=== PATIENT | female | born 1945 | race Caucasian/White ===

== ENCOUNTER → 2016-07-30 | Outpatient (CLI) | payer OTHER ==
[~2016-07-30] MED LIST: ASCO250T14 PO; ATOR-22 PO; AZEL0.15; AZEL15GE TOP; CDXG40WC; FEXO1TAB46 PO; HYDR-5688 PO; LEVO50TA6 PO; METF500T PO; METO25TA3 PO; MOME50SP5; PANT40TA PO; PRO BIOTIC; PROP80TA2 PO; SULF800T23 PO; VITAMIN D PO
[2016-07-30 12:52] LABS: ALT/SGPT 25 U/L (12-78); BLOOD UREA NITROGEN 16 mg/dl (7-18); BUN/CREATININE RATIO 21.1 (10-20); CARBON DIOXIDE 22 mmol/L (21-32); CHLORIDE 110 mmol/L (98-107); CREATININE 0.75 mg/dl (0.60-1.20); GLUCOSE 102 mg/dl (70-99); POTASSIUM 3.8 mmol/L (3.5-5.1); SODIUM 144 mmol/L (136-145)
[2016-07-30 13:02] LABS: ALKALINE PHOSPHATASE 77 U/L (45-117); AST/SGOT 13 U/L (15-37)
[2016-07-30 13:24] LABS: ESTIMATED AVERAGE GLUCOSE 100 mg/dl; HA1C FLAG Normal (Normal)
== END | disposition home or self-care (01) ==
LOC: C.LABBFT 07:56
PROVIDERS: ATTEND Internal Medicine
DX: K21.9 Gastro-esophageal reflux disease without esophagitis (principal); E55.9 Vitamin D deficiency, unspecified; E03.2 Hypothyroidism due to medicaments and other exogenous substances; E78.5 Hyperlipidemia, unspecified; R73.09 Other abnormal glucose

== ENCOUNTER → 2016-09-21 | Outpatient (CLI) | payer OTHER ==
[~2016-09-21] MED LIST changes: -HYDR-5688 PO
--- NOTE | 2016-09-22 10:57 | MAMMOGRAPHY REPORT ---
BILATERAL DIGITAL SCREENING MAMMOGRAM WITH CAD: 09/21/2016 CLINICAL HISTORY: Routine screening. Patient has no complaints. TECHNIQUE: Bilateral CC and MLO views were obtained, with repeat MLO views with more anterior compre ssion. Current study was also evaluated with a Computer Aided Detection (CAD) system. COMPARISON: Comparison is made to exams dated: 09/20/2015 mammogram, 09/13/2013 mammogram, 09/12/2012 ma mmogram, 09/11/2011 mammogram, 09/09/2010 mammogram, and 09/25/2009 mammogram - [facility] ter. BREAST COMPOSITION: The tissue of both breasts is heterogeneously dense, which may obscure small ma sses. FINDINGS: There are stable clustered microcalcifications in the 6:00 right breast. A few other scat tered benign round calcifications bilaterally. There is bilateral axillary lymphadenopathy noted on the MLO views. No new suspicious breast mass, architectural distortion or cluster of microcalcific ations is seen. IMPRESSION: ACR BI-RADS CATEGORY 1: NEGATIVE 1. Stable bilateral mammograms, without mammographic evidence of malignancy. A 1 year screening randall mogram is recommended. 2. Bilateral axillary lymphadenopathy, present on prior mammograms dating back to 2009 and concorda nt with the clinical history of CLL. The patient will receive written notification of the results. Approximately 10% of breast cancers are not detected with mammography. A negative mammographic repor t should not delay biopsy if a clinically suggestive mass is present. Ashly Urban M.D. ay/:09/21/2016 17:07:14 Golf Club Repairer: Canelo LUGO(R)(M), [facility] letter sent: Normal 1/2 BI-RADS Code: ACR BI-RADS Category 1: Negative
== END | disposition home or self-care (01) ==
LOC: C.MAMM 09:59
PROVIDERS: ATTEND Internal Medicine Hematology & Oncology
DX: Z12.31 Encounter for screening mammogram for malignant neoplasm of breast (principal); N64.89 Other specified disorders of breast

== ENCOUNTER → 2016-11-11 | Outpatient (CLI) | payer OTHER ==
[2016-11-11 12:20] LABS: HEMATOCRIT 38.4 % (37-47); MEAN CELL VOLUME 86.5 fL (80-100); MEAN CORPUSCULAR HEMOGLOBIN 26.1 pg (25-34); MEAN CORPUSCULAR HGB CONC 30.2 g/dl (32-36); MEAN PLATELET VOLUME 9.1 fL (7.4-10.4); PLATELET COUNT 147 K/uL (130-400); RED BLOOD COUNT 4.44 M/uL (4.2-5.4)
[2016-11-11 13:14] LABS: ALT/SGPT 26 U/L (12-78); AST/SGOT 12 U/L (15-37); BLOOD UREA NITROGEN 15 mg/dl (7-18); BUN/CREATININE RATIO 19.9 (10-20); CALCIUM 8.8 mg/dl (8.5-10.1); CARBON DIOXIDE 26 mmol/L (21-32); CHLORIDE 109 mmol/L (98-107); CREATININE 0.76 mg/dl (0.60-1.20); GLUCOSE 96 mg/dl (70-99); POTASSIUM 4.1 mmol/L (3.5-5.1); SODIUM 145 mmol/L (136-145)
[2016-11-11 13:16] LABS: ALKALINE PHOSPHATASE 81 U/L (45-117)
[2016-11-11 13:58] LABS: BASO % 0.2 %; BASO ABS # 0.04 K/uL (0-0.2); COMPLETE YES; EOS % 1.7 %; IG% 0.2 %; LYMPH ABS # 12.83 K/uL (1.2-3.4); MONO % 3.2 %; NEUT % 25.7 %; SMUDGE CELLS PRESENT
== END | disposition home or self-care (01) ==
LOC: C.LABBFT 10:12
PROVIDERS: ATTEND Internal Medicine Hematology & Oncology
DX: C91.10 Chronic lymphocytic leukemia of B-cell type not having achieved remission (principal)

== ENCOUNTER → 2017-01-28 | Outpatient (CLI) | payer OTHER ==
[2017-01-28 12:26] LABS: ALT/SGPT 28 U/L (12-78); BLOOD UREA NITROGEN 18 mg/dl (7-18); BUN/CREATININE RATIO 20.5 (10-20); CARBON DIOXIDE 25 mmol/L (21-32); CHLORIDE 109 mmol/L (98-107); CHOLESTEROL 128 mg/dl (0-200); CREATININE 0.86 mg/dl (0.60-1.20); GLUCOSE 113 mg/dl (70-99); POTASSIUM 3.8 mmol/L (3.5-5.1); SODIUM 141 mmol/L (136-145); TRIGLYCERIDES 138 mg/dl (0-150); VERY LOW DENSITY LIPOPROT CALC 28 mg/dl
[2017-01-28 12:32] LABS: ESTIMATED AVERAGE GLUCOSE 103 mg/dl; HA1C FLAG Normal (Normal)
[2017-01-28 12:36] LABS: ALB/GLOB RATIO 1.1 (0.9-2); ALKALINE PHOSPHATASE 77 U/L (45-117); AST/SGOT 16 U/L (15-37); CHOLESTEROL/HDL RATIO 2.8; HDL CHOLESTEROL 45 mg/dl; LDL CHOLESTEROL CALCULATED 55 mg/dl
== END | disposition home or self-care (01) ==
LOC: C.LABBFT 10:16
PROVIDERS: ATTEND Internal Medicine
DX: Z00.00 Encounter for general adult medical examination without abnormal findings (principal); C91.10 Chronic lymphocytic leukemia of B-cell type not having achieved remission; E03.2 Hypothyroidism due to medicaments and other exogenous substances; I47.1 Supraventricular tachycardia; E78.5 Hyperlipidemia, unspecified; R73.01 Impaired fasting glucose

== ENCOUNTER → 2017-05-26 | Outpatient (CLI) | payer OTHER ==
--- NOTE | 2017-05-26 10:58 | DIAGNOSTIC IMAGING REPORT ---
PET/CT CLINICAL HISTORY: Chronic lymphocytic leukemia. Breast cancer. TECHNIQUE: A PET/CT was performed from the skull base through the upper thighs following intravenous injection of 13.63 mCi of F 18 FDG IV. The injection was performed at 8:14 AM on May 26, 2017 and imaging began at 9:18 AM on May 26, 2017. Unenhanced CT was performed for attenuation correction purposes and anatomic localization. COMPARISON STUDY: CT of the chest abdomen and pelvis February 29, [address] of the neck March 19, 2016. FINDINGS: Head and neck: Numerous mildly enlarged bilateral cervical lymph nodes are noted. These nodes have slightly decreased in size since exam March 19, 2016. Index left level 2 node shown image 22 measures 1.2 x 0.9 cm. It previously measured 1.5 x 1.1 cm. Index right level 1 node shown on image 29 measures 1.2 x 0.7 cm. It previously measured 1.5 x 0.7 cm. These nodes have minimal FDG uptake which is similar to background soft tissues. Chest: Moderately enlarged bilateral axillary lymph nodes have not significantly changed since CT of March 08, 2012. An index left axillary node shown image 62 measures 3.5 cm. An additional left axillary node shown on image 67 measures 2.1 x 2 cm. It previously measured 2.2 x 1.7 cm. These nodes have minimal FDG uptake with an SUV max of 1.2. A 1.9 x 1.3 cm right axillary lymph node shown on image 95 has not significant changed in size. Abdomen and Pelvis: Mild splenomegaly is unchanged since CT of March 08, 2012. A water attenuation right renal lesion likely reflects a cyst is suboptimally assessed on this unenhanced exam. A mildly enlarged portacaval lymph node shown image 123 is unchanged since prior CT. This measures 2 x 1.1 cm. This has no significant FDG uptake. Mildly enlarged bilateral external iliac lymph nodes have slightly decreased in size since CT of February 29, 2012. Left external iliac node shown image 199 measures 1.9 x 1.4 cm. It previously measured 2.2 x 1.4 cm. This node has no significant FDG uptake. An index right external iliac node shown image 192 measures 1.8 x 1.2 cm. It previously measured 2 x 1.3 cm. Musculoskeletal: No suspicious skeletal uptake is identified. IMPRESSION: Overall, minimal change. Slight improvement in lymphadenopathy within the neck, chest, abdomen and pelvis since CT of March 08, 2012. A few lymph nodes have slightly decreased in size while the majority of lymph nodes are unchanged. No significant andrzej FDG uptake. Stable mild splenomegaly. Electronically signed by: Joaquin Ross M.D. 05/26/2017 10:57 AM Dictated Date/Time: 05/26/2017 10:41 AM
== END | disposition home or self-care (01) ==
LOC: C.PET 07:54
PROVIDERS: ATTEND Internal Medicine Hematology & Oncology
DX: C91.10 Chronic lymphocytic leukemia of B-cell type not having achieved remission (principal); C50.411 Malignant neoplasm of upper-outer quadrant of right female breast

== ENCOUNTER → 2017-05-31 | Outpatient (CLI) | payer OTHER ==
--- NOTE | 2017-05-31 14:47 | MAMMOGRAPHY REPORT ---
BILATERAL DIGITAL DIAGNOSTIC MAMMOGRAM TOMOSYNTHESIS WITH CAD AND TARGETED RIGHT ULTRASOUND: 05/31/20 17 CLINICAL HISTORY: 72-year-old woman with a personal history of CLL presents with a palpable lump in t he right breast that she has noticed for a little over one month. No skin erythema, thickening or ni pple discharge. TECHNIQUE: Bilateral breast tomosynthesis in addition to standard 2D mammography was performed. Curr ent study was also evaluated with a Computer Aided Detection (CAD) system. COMPARISON: Comparison is made to exams dated: 09/21/2016 mammogram, 09/20/2015 mammogram, 09/19/2014 m ammogram, 09/13/2013 mammogram, 09/12/2012 mammogram, and 09/11/2011 mammogram - [facility]. BREAST COMPOSITION: The tissue of both breasts is heterogeneously dense, which may obscure small mas ses. FINDINGS: Numerous enlarged bilateral axillary lymph nodes project over the pectoralis muscles on th e MLO views, which appears similar to prior mammograms dating back to at least 2011 and are consisten t with the clinical history of CLL. There is an 8.5 mm cluster of round and punctate microcalcificat ions in the 6:00 posterior right breast, that appears similar dating back to at least 09/05/2009, the refore likely benign. A few other benign rim calcifications are scattered in both breasts. No new s uspicious cluster of microcalcifications, focal area of distortion or developing asymmetry is identif ied bilaterally. No obvious mass is seen in the breasts, with particular attention to the triangle p alpable marker which overlies the 12:00 middle to anterior right breast. Targeted ultrasound was performed in the area of palpable lump pointed out by the patient, within the approximate 12:00 right breast, 3 through 8 cm from the nipple. In the 12:00 axis, 7 cm from the ni pple, there are numerous scattered anechoic cysts and duct ectasia. However, there is a possible sup erimposed isoechoic solid mass measuring 7.8 x 6.5 x 6.5 mm. Another probable superimposed isoechoic solid mass in the 12:00 right breast, 5 cm from the nipple measures 5.8 x 4.6 x 7.2 mm. A third pos sible similar appearing isoechoic mass in the 12:00 right breast, 4 cm from the nipple measures 8.3 x 5.9 x 7.6 mm. Although these findings could represent focal fibrocystic changes, adenosis or benign masses such as papillomas/fibroadenomas, definitive characterization with tissue sampling of the lar gest mass in the 12:00 axis, 4 cm from the nipple is recommended. Pending benign pathology results, could follow the other similar appearing areas in the 12:00 right breast with targeted ultrasound in 6 months. It is difficult to tell if one of these masses correlates as palpated, given that the palp able area appears larger than all of the masses conglomerate. IMPRESSION: ACR BI-RADS CATEGORY 4: SUSPICIOUS, TARGETED ULTRASOUND ACR BI-RADS CATEGORY 4: SUSPICIO US 1. Ultrasound guided core biopsy is recommended for isoechoic possible solid mass in the 12:00 right breast, 4 cm from the nipple, measuring 8.3 mm. 2. Other similar appearing isoechoic possible solid masses are seen in the 12:00 right breast, 5 and 7 cm from the nipple that could represent benign fibrocystic change or adenosis however solid masses such as fibroadenomas and papillomas could appear similar. It is unclear if one of these masses cor relates as palpated given that the palpable area pointed out by the patient appears larger than all 3 of the masses in conglomerate. Clinical follow-up may also be needed. 3. Stable mammographic appearance of the left breast, without mammographic evidence of malignancy. 4. Numerous enlarged bilateral axillary lymph nodes are stable comparing to prior mammograms and con cordant with the clinical history of CLL. These results and recommendations were discussed with the patient at the time of the exam. She tenta tively scheduled the right breast biopsy prior to leaving our department. Approximately 10% of breast cancers are not detected with mammography. A negative mammographic report should not delay biopsy if a clinically suggestive mass is present. Ashly Urban M.D. ay/:05/31/2017 10:32:30 Adoption Counselor: Emilia DAWKINS)(Jaclyn), [facility] letter sent: Abnormal 4/5 BI-RADS Code: ACR BI-RADS Category 4: Suspicious Ultrasound BI-RADS: ACR BI-RADS Category 4: Suspici ous
== END | disposition home or self-care (01) ==
LOC: C.MAMM 09:00
PROVIDERS: ATTEND Internal Medicine Hematology & Oncology
DX: C91.10 Chronic lymphocytic leukemia of B-cell type not having achieved remission (principal); N63.10 Unspecified lump in the right breast, unspecified quadrant

== ENCOUNTER → 2017-06-09 | Outpatient (CLI) | payer OTHER ==
--- NOTE | 2017-06-09 09:25 | Discharge Instructions ---
Discharge Instructions Procedure Procedure Date: Jun 09, 2017. Reason for visit: Right Mass. Discharge Discharge Date: Jun 09, 2017. Discharge Diagnosis: status post breast biopsy Instructions Activity Recommendations: Additional Limitations (see below) Return to School/Work: no limitations Recommended Home Diet: No Limitations Provider Instructions: ACTIVITY RECOMMENDATIONS: * No lifting, pushing, pulling or exercising the affected side for three days. RETURN TO SCHOOL/WORK: * You may return to work/school after the procedure, but do not perform any strenuous activities for 24 to 48 hours. MEDICATIONS: * Tylenol (two 325 mg) every four to six hours if needed for mild pain (if not allergic to Tylenol). DIET: * Resume previous diet. SPECIAL CARE INSTRUCTIONS: * Keep biopsy site dry for 24 hours. May shower after 24 hours, but do not soak (bathe) incision. * May remove Tegaderm (plastic patch) tomorrow AFTER showering. * Leave the steri-strips on for one week. Allow the steri-strips to fall off by themselves. If not off after one week, you may remove them. You may place a Bandaid crosswise over the strips, if desired. * Apply ice 10 minutes on and 10 minutes off as needed. * Wear a bra at bedtime to sleep more comfortably for 2-3 days. * Your referring physician should have the results after approximately 5 to 7 business days. * Call for unusual bleeding, fever, drainage, etc or if you have any questions call during normal business hours or after hours call Dr Gudino, . FOLLOW UP VISIT: Follow-up with Referring Physician as scheduled. Allergies Uncoded Allergies: DEMEROL (Allergy, Intermediate, GI UPSET, 01/15/12) Miguel Modiy Recommendations: Call your doctor if: * Temperature above 101 degrees * Pain not relieved by pain medicine ordered * There is increased drainage or redness from any incision * You have any unanswered questions or concerns. Your Doctors Instructions noted above were prepared by provider Shu Gudino. Patient Signature Section: Patient Instructions Signature Page Dayan Deniz Patient (or Guardian) Signature/Date: I have read and understand the instructions given to me by my caregivers. Caregiver/RN/Doctor Signature/Date: The above-named patient and/or guardian has received patient instructions on this date. + Original Patient Signature Page (only) stays with chart. Please make copy for patient.
--- NOTE | 2017-06-09 13:45 | MAMMOGRAPHY REPORT ---
ULTRASOUND GUIDED BIOPSY RIGHT BREAST: 06/09/2017 CLINICAL HISTORY: Right 12:00 breast mass, 4 cm from the nipple. PATIENT CONSENT: The procedure, risks and benefits were discussed with the patient and informed writt en consent was obtained. A timeout was performed immediately prior to the procedure. PROCEDURE DESCRIPTION: With ultrasound guidance, aseptic technique, and lidocaine as the local anesth etic (1% lidocaine to anesthetize the skin and 1% lidocaine with epinephrine to anesthetize the deepe r tissues), the mass of concern in the right 12:00 breast was sampled 4 times with a 14-gauge Achieve biopsy needle. Immediately thereafter, with ultrasound guidance, aseptic technique, and lidocaine as the local anesthetic, a metallic localizer clip was placed at the biopsy site. Direct pressure was applied to the site immediately post procedure and hemostasis was achieved. Postprocedure unilateral mammograms were performed to confirm clip placement. The patient tolerated the procedure without com plication. She was given wound care instructions. The specimens were sent to pathology for analysis. COMPARISON: Comparison is made to exams dated: 05/31/2017 ultrasound, 05/31/2017 mammogram, 7 mammogram, 09/20/2015 mammogram, 09/19/2014 mammogram, and 09/13/2013 mammogram - [facility]. IMPRESSION: ULTRASOUND GUIDED BIOPSY Ultrasound guided core needle biopsy of the right 12:00 breast mass, with clip placement. The patien t will receive pathology results from her referring provider. Pending benign pathology results, ernie mmend follow-up ultrasound and possible mammograms of the right breast in 6 months to confirm stabili ty of the other similar-appearing masses in the right 12:00 breast. Shu Gudino M.D. ah/:06/09/2017 09:27:11 Specialty Sales Representative: Gali FISHERR)(M), [facility]
--- NOTE | 2017-06-09 13:45 | MAMMOGRAPHY REPORT ---
UNILATERAL RIGHT DIGITAL DIAGNOSTIC MAMMOGRAM TOMOSYNTHESIS: 06/09/2017 CLINICAL HISTORY: Status post right breast ultrasound guided biopsy. TECHNIQUE: Breast tomosynthesis in addition to standard 2D mammography was performed. Postprocedura l CC and ML tomosynthesis images including C views were obtained. COMPARISON: Comparison is made to exams dated: 05/31/2017 ultrasound, 05/31/2017 mammogram, 7 mammogram, 09/20/2015 mammogram, 09/19/2014 mammogram, and 09/13/2013 mammogram - [facility]. BREAST COMPOSITION: The tissue of the right breast is heterogeneously dense, which may obscure small masses. FINDINGS: A new biopsy marker clip is seen in the right 12:00 breast status post ultrasound guided b iopsy of the right 12:00 breast mass. No significant postbiopsy hematoma is seen. IMPRESSION: POST PROCEDURE IMAGING FOR MARKER PLACEMENT New biopsy marker clip status post ultrasound guided biopsy of the right 12:00 breast mass. Patholog y results are pending. Pending benign pathology results, recommend follow-up ultrasound and possible mammograms of the right breast in 6 months to confirm stability of other similar-appearing masses in the right 12:00 breast. Approximately 10% of breast cancers are not detected with mammography. A negative mammographic report should not delay biopsy if a clinically suggestive mass is present. Shu Gudino M.D. /:06/09/2017 09:30:22 Stand Up Forklift Operator: Gali DAWKINS)(Jaclyn), [facility] BI-RADS Code: Post Procedure Imaging For Marker Placement
== END | disposition home or self-care (01) ==
LOC: C.MAMM 08:50
PROVIDERS: ATTEND Internal Medicine
DX: R92.8 Other abnormal and inconclusive findings on diagnostic imaging of breast (principal); N63.10 Unspecified lump in the right breast, unspecified quadrant; D24.1 Benign neoplasm of right breast

== ENCOUNTER → 2017-06-11 | Outpatient (CLI) | payer OTHER | END | disposition home or self-care (01) | LOC: C.LABBFT 08:51 | PROVIDERS: ATTEND Internal Medicine Hematology & Oncology | DX: C91.10 Chronic lymphocytic leukemia of B-cell type not having achieved remission (principal) ==

== ENCOUNTER → 2017-06-25 | Outpatient (CLI) | payer OTHER ==
--- NOTE | 2017-06-25 09:05 | Discharge Instructions ---
Discharge Instructions Procedure Procedure Date: Jun 25, 2017. Reason for visit: Right Breast Masses. Discharge Discharge Date: Jun 25, 2017. Discharge Diagnosis: status post breast biopsy Instructions Activity Recommendations: Additional Limitations (see below) Return to School/Work: no limitations Recommended Home Diet: No Limitations Provider Instructions: ACTIVITY RECOMMENDATIONS: * No lifting, pushing, pulling or exercising the affected side for three days. RETURN TO SCHOOL/WORK: * You may return to work/school after the procedure, but do not perform any strenuous activities for 24 to 48 hours. MEDICATIONS: * Tylenol (two 325 mg) every four to six hours if needed for mild pain (if not allergic to Tylenol). DIET: * Resume previous diet. SPECIAL CARE INSTRUCTIONS: * Keep biopsy site dry for 24 hours. May shower after 24 hours, but do not soak (bathe) incision. * May remove Tegaderm (plastic patch) tomorrow AFTER showering. * Leave the steri-strips on for one week. Allow the steri-strips to fall off by themselves. If not off after one week, you may remove them. You may place a Bandaid crosswise over the strips, if desired. * Apply ice 10 minutes on and 10 minutes off as needed. * Wear a bra at bedtime to sleep more comfortably for 2-3 days. * Your referring physician should have the results after approximately 5 to 7 business days. * Call for unusual bleeding, fever, drainage, etc or if you have any questions call during normal business hours or after hours call Dr Gudino, [phone]. FOLLOW UP VISIT: Follow-up with Referring Physician as scheduled. Allergies Uncoded Allergies: DEMEROL (Allergy, Intermediate, GI UPSET, 01/15/12) Miguel Boone Recommendations: Call your doctor if: * Temperature above 101 degrees * Pain not relieved by pain medicine ordered * There is increased drainage or redness from any incision * You have any unanswered questions or concerns. Your Doctors Instructions noted above were prepared by provider Shu Gudino. Patient Signature Section: Patient Instructions Signature Page Dayan Deniz Patient (or Guardian) Signature/Date: I have read and understand the instructions given to me by my caregivers. Caregiver/RN/Doctor Signature/Date: The above-named patient and/or guardian has received patient instructions on this date. + Original Patient Signature Page (only) stays with chart. Please make copy for patient.
--- NOTE | 2017-06-25 12:57 | MAMMOGRAPHY REPORT ---
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 2 other similar-appearing masses are seen within the right 12:00 breast for which biopsy is ernie mmended. PATIENT CONSENT: The procedure, risks and benefits were discussed with the patient and informed writt en consent was obtained. A timeout was performed immediately prior to the procedure. PROCEDURE DESCRIPTION: With ultrasound guidance, aseptic technique, and lidocaine as the local anesth etic (1% lidocaine to anesthetize the skin and 1% lidocaine with epinephrine to anesthetize the deepe r tissues), the mass of concern in the right 12:00 breast, 7 cm from the nipple (labeled mass "A") wa s sampled 3 times with a 14-gauge Achieve biopsy needle. Immediately thereafter, with ultrasound rudi dance, aseptic technique, and lidocaine as the local anesthetic, a metallic localizer clip (day [facility]) was placed centrally in the mass. A small amount of dark brown nipple discharge was noted from t he nipple during the procedure. Direct pressure was applied to the site immediately post procedure an d hemostasis was achieved. Postprocedure unilateral mammograms were performed to confirm clip placem ent. The patient tolerated the procedure without complication. She was given wound care instructions . The specimens were sent to pathology for analysis. IMPRESSION: ULTRASOUND GUIDED BIOPSY Ultrasound guided core needle biopsy of the right 12:00 breast mass, 7 cm from the nipple (mass "A"), with clip placement. The patient will receive pathology results from her referring provider. Shu Gudino M.D. /:06/25/2017 09:26:39 Business Reporting Developer: Emilia DAWKINS)(Jaclyn), [facility]
--- NOTE | 2017-06-25 12:57 | MAMMOGRAPHY REPORT ---
UNILATERAL RIGHT DIGITAL DIAGNOSTIC MAMMOGRAM TOMOSYNTHESIS: 06/25/2017 CLINICAL HISTORY: Status post ultrasound-guided biopsy of 2 masses in the right 12:00 breast. TECHNIQUE: Breast tomosynthesis in addition to standard 2D mammography was performed. Postprocedura l right CC and ML tomosynthesis images including C views were obtained. COMPARISON: Comparison is made to exams dated: 06/25/2017 ultrasound biopsy, 06/09/2017 mammogram, 1 08/09/2016 ultrasound biopsy, 05/31/2017 ultrasound, 05/31/2017 mammogram, and 09/21/2016 mammogram - [facility]. BREAST COMPOSITION: The tissue of the right breast is heterogeneously dense, which may obscure small masses. FINDINGS: A new wing-shaped biopsy marker clip is seen in the right 12:00 breast at the site of ultr asound-guided core needle biopsy of the right 12:00 breast mass, 7 cm from the nipple. A new coil-sh aped biopsy marker clip is seen in the right 12:00 breast at the site of biopsy of the right 12:00 br east mass, 5 cm from the nipple. A ribbon-shaped biopsy marker clip is seen at the site of prior bio psy in the right 12:00 breast, 4 cm from the nipple. The total extent of the clips spans 2.7 cm. No significant postbiopsy hematoma is seen. IMPRESSION: POST PROCEDURE IMAGING FOR MARKER PLACEMENT Two new biopsy marker clips status post ultrasound-guided core needle biopsy of two right 12:00 breas t masses. Pathology results are pending. Approximately 10% of breast cancers are not detected with mammography. A negative mammographic report should not delay biopsy if a clinically suggestive mass is present. hSu Gudino M.D. /:06/25/2017 09:25:13 Aerial Photograph Interpreter: Emilia DAWKINS)(M), [facility] BI-RADS Code: Post Procedure Imaging For Marker Placement
--- NOTE | 2017-06-25 12:57 | MAMMOGRAPHY REPORT ---
MULTIPLE ULTRASOUND GUIDED BIOPSIES RIGHT BREAST: 06/25/2017 CLINICAL HISTORY: Recent biopsy of a right 12:00 breast mass, 4 cm from the nipple, which yielded an atypical papilloma. 2 other similar-appearing masses were also seen within the right 12:00 breast, 5 and 7 cm from the nipple, for which biopsy was recommended. PATIENT CONSENT: The procedure, risks and benefits were discussed with the patient and informed writt en consent was obtained. A timeout was performed immediately prior to the procedure. PROCEDURE DESCRIPTION: With ultrasound guidance, aseptic technique, and lidocaine as the local anesth etic (1% lidocaine to anesthetize the skin and 1% lidocaine with epinephrine to anesthetize the deepe r tissues), the mass of concern in the right 12:00 breast, 5 cm from the nipple (labeled mass "B") wa s sampled 6 times with a 14-gauge Achieve biopsy needle. Immediately thereafter, with ultrasound rudi dance, aseptic technique, and lidocaine as the local anesthetic, a metallic localizer clip (coil-shap ed) was placed centrally in the mass. Direct pressure was applied to the site immediately post proce dure and hemostasis was achieved. Postprocedure unilateral mammograms were performed to confirm clip placement. The patient tolerated the procedure without complication. She was given wound care instr uctions. The specimens were sent to pathology for analysis. COMPARISON: Comparison is made to exams dated: 06/25/2017 ultrasound biopsy, 06/09/2017 mammogram, 08/09/2016 ultrasound biopsy, 05/31/2017 ultrasound, 05/31/2017 mammogram, and 09/21/2016 mammogram - [facility]. IMPRESSION: ULTRASOUND GUIDED BIOPSY Ultracet guided core needle biopsy of the right 12:00 breast mass, 5 cm from the nipple (mass "B"), w ith clip placement. The patient will receive pathology results from her referring provider. Shu Gudino M.D. /:06/25/2017 09:10:07 Travel Money Advisor: Emilia DAWKINS)(), [facility]
== END | disposition home or self-care (01) ==
LOC: C.MAMM 08:20
PROVIDERS: ATTEND Internal Medicine
DX: R92.8 Other abnormal and inconclusive findings on diagnostic imaging of breast (principal); N63.10 Unspecified lump in the right breast, unspecified quadrant; D49.3 Neoplasm of unspecified behavior of breast

== ENCOUNTER → 2017-08-05 | Outpatient (CLI) | payer OTHER ==
[2017-08-05 12:44] LABS: HEMATOCRIT 38.4 % (37-47); MEAN CELL VOLUME 86.3 fL (80-100); MEAN CORPUSCULAR HGB CONC 31.3 g/dl (32-36); MEAN PLATELET VOLUME 9.7 fL (7.4-10.4); PLATELET COUNT 160 K/uL (130-400); RED CELL DISTRIBUTION WIDTH CV 17.2 % (11.5-14.5); RED CELL DISTRIBUTION WIDTH SD 54.2 fL (36.4-46.3); WHITE BLOOD COUNT 22.52 K/uL (4.8-10.8)
[2017-08-05 13:05] LABS: HEMOGLOBIN A1C 5.1 % (4.5-5.6)
[2017-08-05 13:16] LABS: ALBUMIN 3.5 gm/dl (3.4-5.0); ALT/SGPT 24 U/L (12-78); BLOOD UREA NITROGEN 18 mg/dl (7-18); CALCIUM 9.5 mg/dl (8.5-10.1); CARBON DIOXIDE 25 mmol/L (21-32); CHOLESTEROL 110 mg/dl (0-200); GLUCOSE 105 mg/dl (70-99); POTASSIUM 3.8 mmol/L (3.5-5.1); SODIUM 138 mmol/L (136-145)
[2017-08-05 13:28] LABS: BASO % 0.2 %; BASO ABS # 0.05 K/uL (0-0.2); EOS % 1.7 %; EOS ABS # 0.39 K/uL (0-0.5); IG# 0.04 K/uL (0.00-0.02); LYMPH % 68.2 %; LYMPH ABS # 15.35 K/uL (1.2-3.4); MONO % 3.3 %; MONO ABS # 0.75 K/uL (0.11-0.59); NEUT % 26.4 %; NEUT ABS # 5.94 K/uL (1.4-6.5)
[2017-08-05 13:36] LABS: ALKALINE PHOSPHATASE 81 U/L (45-117); AST/SGOT 13 U/L (15-37); LDL CHOLESTEROL CALCULATED 41 mg/dl
== END | disposition home or self-care (01) ==
LOC: C.LABBFT 08:32
PROVIDERS: ATTEND Internal Medicine
DX: C91.10 Chronic lymphocytic leukemia of B-cell type not having achieved remission (principal); E03.2 Hypothyroidism due to medicaments and other exogenous substances; E78.5 Hyperlipidemia, unspecified; R73.01 Impaired fasting glucose; G25.81 Restless legs syndrome

== ENCOUNTER → 2017-10-08 | Outpatient (CLI) | payer OTHER ==
[2017-10-08 12:21] LABS: HEMATOCRIT 29.3 % (37-47); HEMOGLOBIN 8.9 g/dL (12.0-16.0); MEAN CORPUSCULAR HEMOGLOBIN 26.7 pg (25-34); MEAN CORPUSCULAR HGB CONC 30.4 g/dl (32-36); MEAN PLATELET VOLUME 8.7 fL (7.4-10.4); NUCLEATED RED BLOOD CELL ABS 0.07 K/uL (0-0); PLATELET COUNT 195 K/uL (130-400); RED CELL DISTRIBUTION WIDTH CV 18.2 % (11.5-14.5); WHITE BLOOD COUNT 22.93 K/uL (4.8-10.8)
[2017-10-08 13:08] LABS: BASO % 0.1 %; BASO ABS # 0.03 K/uL (0-0.2); EOS % 1.6 %; EOS ABS # 0.36 K/uL (0-0.5); IG# 0.13 K/uL (0.00-0.02); LYMPH % 69.6 %; LYMPH ABS # 15.97 K/uL (1.2-3.4); MONO % 2.5 %; MONO ABS # 0.57 K/uL (0.11-0.59); NEUT % 25.6 %; NEUT ABS # 5.87 K/uL (1.4-6.5)
[2017-10-08 17:27] LABS: ALT/SGPT 24 U/L (12-78); BLOOD UREA NITROGEN 16 mg/dl (7-18); CALCIUM 8.5 mg/dl (8.5-10.1); CARBON DIOXIDE 26 mmol/L (21-32); CREATININE 0.81 mg/dl (0.60-1.20); GLUCOSE 136 mg/dl (70-99); POTASSIUM 3.7 mmol/L (3.5-5.1); SODIUM 139 mmol/L (136-145)
[2017-10-08 17:30] LABS: ALKALINE PHOSPHATASE 74 U/L (45-117); AST/SGOT 19 U/L (15-37); TOTAL PROTEIN 6.4 gm/dl (6.4-8.2)
== END | disposition home or self-care (01) ==
LOC: C.LABBFT 11:14
PROVIDERS: ATTEND Internal Medicine Hematology & Oncology
DX: C91.10 Chronic lymphocytic leukemia of B-cell type not having achieved remission (principal)

== ENCOUNTER → 2017-10-21 | Outpatient (CLI) | payer OTHER ==
[2017-10-21 10:42] LABS: BLOOD UREA NITROGEN 24 mg/dl (7-18); CARBON DIOXIDE 29 mmol/L (21-32); CREATININE 0.94 mg/dl (0.60-1.20); GLUCOSE 104 mg/dl (70-99); POTASSIUM 3.9 mmol/L (3.5-5.1); SODIUM 138 mmol/L (136-145)
== END | disposition home or self-care (01) ==
LOC: C.LAB 09:43
PROVIDERS: ATTEND Internal Medicine Cardiovascular Disease
DX: E78.5 Hyperlipidemia, unspecified (principal); I47.1 Supraventricular tachycardia; R00.2 Palpitations; R60.9 Edema, unspecified

== ENCOUNTER → 2018-02-04 | Outpatient (CLI) | payer OTHER ==
[2018-02-04 12:26] LABS: HEMATOCRIT 36.7 % (37-47); HEMOGLOBIN 10.8 g/dL (12.0-16.0); MEAN CORPUSCULAR HEMOGLOBIN 24.4 pg (25-34); MEAN CORPUSCULAR HGB CONC 29.4 g/dl (32-36); MEAN PLATELET VOLUME 9.5 fL (7.4-10.4); PLATELET COUNT 178 K/uL (130-400); RED CELL DISTRIBUTION WIDTH CV 17.3 % (11.5-14.5); RED CELL DISTRIBUTION WIDTH SD 52.2 fL (36.4-46.3); WHITE BLOOD COUNT 18.83 K/uL (4.8-10.8)
[2018-02-04 12:48] LABS: HEMOGLOBIN A1C 5.1 % (4.5-5.6)
[2018-02-04 12:50] LABS: ALBUMIN 3.7 gm/dl (3.4-5.0); ALKALINE PHOSPHATASE 72 U/L (45-117); ALT/SGPT 24 U/L (12-78); AST/SGOT 17 U/L (15-37); BLOOD UREA NITROGEN 16 mg/dl (7-18); CALCIUM 9.1 mg/dl (8.5-10.1); CARBON DIOXIDE 27 mmol/L (21-32); CHOLESTEROL 115 mg/dl (0-200); CREATININE 0.93 mg/dl (0.60-1.20); GLUCOSE 107 mg/dl (70-99); LDL CHOLESTEROL CALCULATED 41 mg/dl; POTASSIUM 3.5 mmol/L (3.5-5.1); SODIUM 140 mmol/L (136-145)
[2018-02-04 13:31] LABS: BASO % 0.2 %; BASO ABS # 0.04 K/uL (0-0.2); EOS % 1.3 %; EOS ABS # 0.25 K/uL (0-0.5); IG# 0.05 K/uL (0.00-0.02); LYMPH % 71.4 %; LYMPH ABS # 13.44 K/uL (1.2-3.4); MONO % 3.1 %; MONO ABS # 0.59 K/uL (0.11-0.59); NEUT % 23.7 %; NEUT ABS # 4.46 K/uL (1.4-6.5)
== END | disposition home or self-care (01) ==
LOC: C.LABBFT 08:19
PROVIDERS: ATTEND Internal Medicine Hematology & Oncology
DX: Z00.00 Encounter for general adult medical examination without abnormal findings (principal); C91.10 Chronic lymphocytic leukemia of B-cell type not having achieved remission; E03.2 Hypothyroidism due to medicaments and other exogenous substances; I47.1 Supraventricular tachycardia; E78.5 Hyperlipidemia, unspecified; R73.01 Impaired fasting glucose